=== PATIENT | female | born 1990 | race Caucasian/White ===

== ENCOUNTER 2018-08-23 09:59 | Day surgery (SDC) | payer OTHER, SELFPAY ==
[2018-08-13 13:07] VITALS: BMI 21.9
--- NOTE | 2018-08-23 | PATH_ITS ---
[facility] Accession Number: [id number] . 01 Material submitted: . ECTOCERVIX . 02 Diagnosis: Cervical LEEP Biopsy: High-grade squamous intraepithelial lesion (CAROL-2) present in several foci with one focus present at the inked resection margin. Negative for evidence of invasive malignancy. V/08/25/2018 . 02 Electronically signed: . Tony Rodriguez MD, Pathologist NPI- [id number] . 01 Gross description: . Received in formalin, labeled ectocervix x2, endocervical x1, see order sheet for stitch marking, are three pieces of cervical tissue. Piece #1 (2.2 x 1.3 x 0.3 cm) contains a short black suture indicating 6 o'clock. Piece #2 (2.5 x 1.1 x 0.4 cm) contains a two-tailed long suture indicating 12 o'clock. Piece #3 (2.2 x 1.0 x 0.2 cm) is untagged and designated as endocervical. The mucosa is saini-dolan smooth and shiny. The resection margins are pale dolan and finely granular. No nodules, masses or lesions are identified. Ink code: black-deep; blue-radial; green-resection margin. Section code: Piece #1 is serially sectioned and entirely submitted clockwise from 3 o'clock - (A1) 3 o'clock to 6 o'clock; (A2) 6 o'clock to 9 o'clock; piece #2, serially sectioned and entirely submitted clockwise from 9 o'clock - (A3) 9 o'clock to 12 o'clock; (A4) 12 o'clock to 3 o'clock; (A5-A6) piece #3, serially sectioned. ([id number]) /MRV . 02 Pathologist provided ICD-10: N87.1 . 02 CPT . 756178 Performed at: 01 [facility] [address] [id number] MD Tucker Rivas MD Phone: [phone] Performed at: 02 [facility] [address] [place], [place] [id number] MD Margaret Benitez MD Phone: [phone]
[2018-08-23 10:13] VITALS: BMI 21.0
[2018-08-23 10:16] VITALS: BP 106/72; PULSE 98; RESP 15; TEMP 36.3; O2SAT 100
[2018-08-23] MEDS: LACTATED RINGERS 1,000 ML 100 ML IV (10:24)
--- NOTE | 2018-08-23 11:59 | PM.PREOP ---
Pre-operative Note Interval Note History & Physical reviewed/Exam performed by Physician: Yes Changes to H&P: No
[2018-08-23 13:05] VITALS: BP 108/74; PULSE 99; RESP 16; TEMP 36.1; O2SAT 100
--- NOTE | 2018-08-23 13:05 | SUR.OPER ---
Lithotomy on padded OR bed, head on pillow, arms secured on padded arm boards at <90 degrees abduction. Legs secured in padded yellow fins stirrups.
[2018-08-23 13:10] VITALS: BP 108/72; PULSE 76; RESP 16; O2SAT 100
[2018-08-23 13:15] VITALS: BP 113/80; PULSE 76; RESP 17; O2SAT 100
[2018-08-23 13:45] VITALS: BP 111/82; PULSE 75; RESP 18; TEMP 36.8; O2SAT 100
--- NOTE | 2018-08-26 14:35 | PM.HP.1 ---
History of Present Illness Date Patient Seen: 08/23/18 Time Patient Seen: 10:45 Chief complaint: [id number] LEEP CONE BX Narrative: Patient is a 28-year-old with CAROL 2 who is here for LEEP cone biopsy of the cervix Patient History Medical History (Updated 08/26/18 @ 14:36 by Digna Gotti MD) Atypical chest pain (Acute) Surgical History (Updated 05/04/18 @ 11:18 by Mariel Renee) History of colposcopy with cervical biopsy (Resolved 03/30/17) History of colposcopy with cervical biopsy (Resolved 09/18/16) History of third molar tooth extraction (Resolved) Social History household members: spouse Smoking Status: Never smoker Family & Social History Social History: household members spouse Tobacco & Substance use: Smoking Status Never smoker Meds Home Medications Medication Instructions Recorded Confirmed Type No Known Home Medications 06/30/18 08/23/18 History oxycodone-acetaminophen [Percocet] 1 tab PO Q4-6H PRN #10 tab 08/23/18 Rx Allergies Allergy/AdvReac Type Severity Reaction Status Date / Time No Known Drug Allergies Allergy Verified 08/23/18 10:12 Exam Vital Signs (past 8 hours): Oxygen Delivery Method Room Air Narrative Exam Narrative: HEENT: No thyromegaly, no anterior cervical or supraclavicular lymphadenopathy. Lungs:Clear to auscultation bilaterally, no wheezes. Cardiovascular: Regular rate and rhythm, no murmurs, rubs, or gallops. Abdomen: No scars. No hepatosplenomegaly. No masses palpable. External genitalia: Normal Vagina: Normal Cervix: Normal Bimanual exam: 6 Week size uterus. Mobile.] Rectal: No masses. Assessment & Plan (1) CAROL III with severe dysplasia: Current visit: No Status: Acute Assessment & Plan narrative: Assessment: 28-year-old with CAROL 2 confirmed by colposcopic biopsy Plan: LEEP cone biopsy of the cervix The risks, benefits, and alternatives to the procedure were explained to the patient. The risks including bleeding and infection. She understands these risks and agrees to proceed. A full PAR-Q was held and consent form was signed Time Spent With Patient Time with patient: 15-24 minutes
--- NOTE | 2018-08-26 14:47 | PM.GYNOP.1 ---
Operative Date/Time/Diagnoses Date of procedure: 08/23/18 Time of procedure: 12:30 Pre-op diagnosis: CAROL 2 Post-op diagnosis: same Procedure: Procedures Operation Date: 08/23/18 11:15 Actual Procedures Side Surgeon p LEEP Procedure Digna Gotti MD s Cone Biopsy Digna Gotti MD Indications: CAROL 2 confirmed by colposcopic biopsy Surgeon: Digna Gotti Anesthesia Type: General (LMA) Operative Notes Findings: Lugol's light circumferentially around the cervical os Closure Type: not applicable Specimen(s): other (LEEP cone biopsy of the cervix) Estimated blood loss (mL): 5 Blood products transfused: none Procedure in detail: After informed consent was obtained, the patient was taken to the operating room where she was placed in the dorsal supine position. After adequate LMA general anesthesia was achieved, she was placed in the dorsal lithotomy position, and prepped and draped in the usual sterile fashion. a time-out was performed A plastic coated bivalve speculum was placed into the vagina. A plastic coated single-tooth tenaculum was placed on the anterior lip of the cervix. Lugol's was applied to the cervix. There was Lugol's light areas circumferentially around the cervical os. Using the 2 cm loop, a LEEP cone biopsy was performed with settings at 60 cut and 40 cautery. The specimen was oriented with a short suture at 6:00 a.m. and a long suture at 12:00 p.m.. A 2nd endocervical component was obtained. this was untagged. The ball cautery was used for hemostasis. the plastic coated single-tooth tenaculum was removed from the anterior lip of the cervix. Plastic coated bivalve speculum was removed from the vagina. Sponge, lap, and instrument counts were correct x2. The patient tolerated the procedure well, and was taken to PACU in stable condition. Complications: none Post-operative Condition: stable Disposition: PACU Plan for aftercare: Home after recovery
== END 2018-08-23 13:41 | disposition home or self-care (01) ==
PROVIDERS: PCP Nurse Practitioner; Visit Provider Obstetrics & Gynecology
PROC: 0UBC7ZZ Excision of Cervix, Via Natural or Artificial Opening (ICD-10-PCS; CPT 57522; principal; 2018-08-23 11:15)
PROC: 0UBC7ZZ Excision of Cervix, Via Natural or Artificial Opening (ICD-10-PCS; CPT 57520; 2018-08-23 11:15)
DX: N87.1 Moderate cervical dysplasia (principal); J45.909 Unspecified asthma, uncomplicated
CPT/HCPCS: 57522; J1100; J1885; J2405; J2704